=== PATIENT | female | born 1935 | race Caucasian/White ===

== ENCOUNTER 2017-05-05 12:50 | Inpatient (IN) | payer MEDICARE, OTHER ==
[~2017-05-05] VITALS: Ht 160 cm; Wt 104.1 kg
[2017-05-05] MEDS ORDERED: DILTIAZEM 5 MG/ML, 5ML IV ONE (13:30)
[2017-05-05] MEDS ORDERED: SODIUM CHLORIDE FLUSH 10ML SYR IVF ONE (13:30)
[2017-05-05] MEDS ORDERED: DILTIAZEM 5 MG/ML, 5ML ONE (13:34)
[2017-05-05 13:40] LABS: HEMATOCRIT 41.7 % (34.6-47.8); HEMOGLOBIN 13.8 g/dL (11.7-16.4); WHITE BLOOD COUNT 6.7 x10^3/uL (3.4-10)
[2017-05-05 13:51] LABS: ASPARTATE AMINO TRANSFERASE 55 U/L (15-37); BLOOD UREA NITROGEN 27 mg/dL (7-18)
[2017-05-05 14:08] LABS: IS PT STATUS REG ER OR PRE ER? YES
[2017-05-05] MEDS ORDERED: HEPARIN 5,000 UNITS/ML, 1ML IV PRN (14:30)
[2017-05-05] MEDS ORDERED: HEPARIN 5,000 UNITS/ML, 1ML IV ONE (14:30)
[2017-05-05] MEDS ORDERED: OMNIPAQUE 350 MG/ML, 100ML BOTTLE ONE (14:35)
[2017-05-05] MEDS ORDERED: HEPARIN 5,000 UNITS/ML, 1ML ONE (15:17)
[2017-05-05] MEDS ORDERED: HEPARIN 25,000 UNITS/500ML PMX 500 ML ONE (15:17)
[2017-05-05] MEDS ORDERED: ASPIRIN 81 MG TABLET CHEW ONE (15:19)
[2017-05-05] MEDS ORDERED: ALBUTEROL SULFATE 2.5 MG/3 ML NPPB ONE (15:30)
[2017-05-05] MEDS ORDERED: ASPIRIN 81 MG TABLET CHEW PO ONE (15:30)
[2017-05-05] MEDS ORDERED: AMLO5TAB2 PO (15:32)
[2017-05-05] MEDS ORDERED: OMEP-110 PO (15:32)
[2017-05-05] MEDS ORDERED: GABA300C10 PO (15:32)
[2017-05-05] MEDS ORDERED: HYDR-3237 PO (15:32)
[2017-05-05] MEDS: HEPARIN 25,000 UNITS/500ML PMX 500 ML IV PRN (15:49)
[2017-05-05] MEDS ORDERED: ALBUTEROL SULFATE 2.5 MG/3 ML ONE (16:21)
[2017-05-05] MEDS ORDERED: GUAIFENESIN/DM 200-20MG, 10ML UDC PO PRN (16:30)
[2017-05-05] MEDS ORDERED: LABETALOL 5MG/ML, 20ML IVPush PRN (16:30)
[2017-05-05] MEDS ORDERED: ONDANSETRON 2MG/ML, 2ML IVPush PRN (16:30)
[2017-05-05] MEDS ORDERED: morphine SULFATE 10 MG/ML, 1ML IVPush PRN (16:30)
[2017-05-05] MEDS ORDERED: POLYETHYLENE GLYCOL 17 GM PACKET PO PRN (16:30)
[2017-05-05] MEDS ORDERED: ONDANSETRON ODT 4 MG PO PRN (16:30)
[2017-05-05] MEDS ORDERED: FUROSEMIDE 20 MG/2 ML IV ONE (17:00)
[2017-05-05 17:07] LABS: IS PT STATUS REG ER OR PRE ER? YES
[2017-05-05 20:10] VITALS: BP 122/77
[2017-05-05 20:17] VITALS: BP 122/77
[2017-05-05] MEDS: METOPROLOL TARTRATE 25 MG TABLET PO SCH (20:29)
[2017-05-05] MEDS: FAMOTIDINE 20 MG/2 ML IVPush SCH (20:29)
[2017-05-05] MEDS: HYDROcodone/APAP 5/325 TABLET PO PRN ×2 (20:31→20:36)
[2017-05-05 22:33] LABS: IS PT STATUS REG ER OR PRE ER? NO
[2017-05-06 03:55] VITALS: BP 140/88
[2017-05-06] MEDS: HYDROcodone/APAP 5/325 TABLET PO PRN ×2 (04:11→19:57)
[2017-05-06 05:50] LABS: HEMATOCRIT 36.5 % (34.6-47.8); HEMOGLOBIN 12.2 g/dL (11.7-16.4); WHITE BLOOD COUNT 5.3 x10^3/uL (3.4-10)
[2017-05-06 05:51] LABS: BLOOD UREA NITROGEN 19 mg/dL (7-18)
[2017-05-06 05:57] LABS: ASPARTATE AMINO TRANSFERASE 31 U/L (15-37)
[2017-05-06 06:01] LABS: IS PT STATUS REG ER OR PRE ER? NO
[2017-05-06] MEDS: METOPROLOL TARTRATE 25 MG TABLET PO SCH ×2 (06:39→17:17)
[2017-05-06] MEDS: ASPIRIN 81 MG TABLET EC PO SCH (06:39)
[2017-05-06 08:26] VITALS: BP 150/81
[2017-05-06] MEDS: SENNA/DOCUSATE TABLET PO SCH (09:00)
[2017-05-06] MEDS: GABAPENTIN 300 MG CAPSULE PO SCH (09:04)
[2017-05-06] MEDS: FAMOTIDINE 20 MG/2 ML IVPush SCH ×2 (09:04→19:58)
[2017-05-06] MEDS: AMLODIPINE 5 MG TABLET PO SCH (09:04)
[2017-05-06] MEDS ORDERED: REGADENOSON 0.4 MG/5 ML SYRINGE ONE (11:06)
[2017-05-06 13:44] VITALS: BP 126/76
[2017-05-06] MEDS: HEPARIN 25,000 UNITS/500ML PMX 500 ML IV PRN (17:15)
[2017-05-06 18:54] VITALS: BP 135/76
[2017-05-06] MEDS: APIXABAN 5 MG TABLET PO SCH (20:14)
[2017-05-07 02:17] VITALS: BP 133/71
[2017-05-07] MEDS: METOPROLOL TARTRATE 25 MG TABLET PO SCH ×2 (05:39→18:07)
[2017-05-07 05:40] LABS: HEMATOCRIT 37.6 % (34.6-47.8); HEMOGLOBIN 12.6 g/dL (11.7-16.4); WHITE BLOOD COUNT 5.4 x10^3/uL (3.4-10)
[2017-05-07 05:52] LABS: ASPARTATE AMINO TRANSFERASE 27 U/L (15-37); BLOOD UREA NITROGEN 13 mg/dL (7-18)
[2017-05-07] MEDS: ASPIRIN 81 MG TABLET EC PO SCH (06:32)
[2017-05-07 07:45] VITALS: BP 156/82
[2017-05-07] MEDS ORDERED: FAMOTIDINE 20 MG/2 ML IVPush SCH ×2 (09:00)
[2017-05-07] MEDS ORDERED: FAMOTIDINE 20 MG TABLET PO SCH (09:00)
[2017-05-07] MEDS: AMLODIPINE 5 MG TABLET PO SCH (09:02)
[2017-05-07] MEDS: SENNA/DOCUSATE TABLET PO SCH (09:02)
[2017-05-07] MEDS: GABAPENTIN 300 MG CAPSULE PO SCH (09:02)
[2017-05-07] MEDS: APIXABAN 5 MG TABLET PO SCH ×2 (09:03→20:54)
[2017-05-07] MEDS: FUROSEMIDE 40 MG/4 ML IV SCH (09:05)
[2017-05-07] MEDS: FAMOTIDINE 20 MG/2 ML IVPush SCH ×2 (09:13→20:54)
[2017-05-07] MEDS: HYDROcodone/APAP 5/325 TABLET PO PRN ×2 (12:46→20:57)
[2017-05-07 13:18] VITALS: BP 148/76
[2017-05-07 18:05] VITALS: BP 145/81
[2017-05-07 19:10] VITALS: BP 137/81
[2017-05-08 04:11] VITALS: BP 165/82
[2017-05-08 05:36] LABS: HEMATOCRIT 38.6 % (34.6-47.8); HEMOGLOBIN 12.9 g/dL (11.7-16.4); WHITE BLOOD COUNT 5.3 x10^3/uL (3.4-10)
[2017-05-08 05:46] LABS: BLOOD UREA NITROGEN 13 mg/dL (7-18)
[2017-05-08] MEDS: ASPIRIN 81 MG TABLET EC PO SCH (06:26)
[2017-05-08] MEDS: METOPROLOL TARTRATE 25 MG TABLET PO SCH (06:26)
[2017-05-08 06:46] VITALS: BP 163/91
[2017-05-08] MEDS: FUROSEMIDE 40 MG/4 ML IV SCH (09:19)
[2017-05-08] MEDS: APIXABAN 5 MG TABLET PO SCH (09:19)
[2017-05-08] MEDS: SENNA/DOCUSATE TABLET PO SCH (09:20)
[2017-05-08] MEDS: GABAPENTIN 300 MG CAPSULE PO SCH (09:20)
[2017-05-08] MEDS: AMLODIPINE 5 MG TABLET PO SCH (09:21)
[2017-05-08] MEDS: HYDROcodone/APAP 5/325 TABLET PO PRN (09:36)
[2017-05-08] MEDS ORDERED: FURO40TA6 PO (11:25)
[2017-05-08] MEDS ORDERED: POTA20TA89 PO (11:25)
[2017-05-08] MEDS ORDERED: METO25TA35 PO (11:25)
[2017-05-08] MEDS ORDERED: APIX5TAB PO (11:25)
[2017-05-08 12:55] VITALS: BP 135/80
== END 2017-05-08 15:15 | disposition home or self-care (01) | DRG 291 ==
LOC: ED 13:57 → EDIP 15:29 → 5SO 17:44 → DCLOUNGE 05-08 14:45
PROVIDERS: ADMIT Internal Medicine; ATTEND Internal Medicine
DX: I11.0 Hypertensive heart disease with heart failure (principal); J96.01 Acute respiratory failure with hypoxia; D68.59 Other primary thrombophilia; G62.9 Polyneuropathy, unspecified; N19 Unspecified kidney failure; I48.92 Unspecified atrial flutter; I48.91 Unspecified atrial fibrillation; K76.1 Chronic passive congestion of liver; Z68.41 Body mass index [BMI] 40.0-44.9, adult; I50.31 Acute diastolic (congestive) heart failure; E16.2 Hypoglycemia, unspecified; E04.9 Nontoxic goiter, unspecified; G89.29 Other chronic pain; J45.909 Unspecified asthma, uncomplicated; K21.9 Gastro-esophageal reflux disease without esophagitis; K44.9 Diaphragmatic hernia without obstruction or gangrene; Z79.01 Long term (current) use of anticoagulants; Z79.82 Long term (current) use of aspirin; Z79.899 Other long term (current) drug therapy; Z85.3 Personal history of malignant neoplasm of breast; Z87.891 Personal history of nicotine dependence; Z90.12 Acquired absence of left breast and nipple; Z96.653 Presence of artificial knee joint, bilateral; E66.9 Obesity, unspecified; R73.9 Hyperglycemia, unspecified
CPT/HCPCS: 36415; 71010; 71275; 78452; 80048; 80053; 80061; 81003; 82040; 83036; 83735; 83880; 84439; 84443; 84484; 85025; 85520; 85610; 93005; 93017; 93306; 94640; 96374; 96375; J1644; J1940; J2785; J7613; Q9967; A9502; C9898; S0028